=== PATIENT | female | born 1990 | race Caucasian/White ===

== ENCOUNTER 2019-07-17 20:19 | Emergency (ER) | payer OTHER ==
[~2019-07-17] VITALS: Ht 167.6 cm; Wt 74.6 kg
[2019-07-17 20:26] VITALS: Ht 167.6 cm; Wt 74.6 kg
[2019-07-17 22:42] VITALS: BP 107/55
== END 2019-07-17 22:42 | disposition home or self-care (01) ==
LOC: ED 20:19
DX: G62.9 Polyneuropathy, unspecified (principal)
CPT/HCPCS: Q0092